=== PATIENT | male | born 1970 | race African-American/Black ===

== ENCOUNTER 2018-11-02 16:20 | Inpatient (IN) | payer BC ==
[~2018-11-02] VITALS: Ht 188 cm; Wt 118.0 kg
[~2018-11-02 16:20] MED LIST: BACTRIM DS1 TAB PO; CLINDAMYCIN HC300 MG PO; GLYBURIDE2.5 MG; LAC PO; METFORMIN ER500 M1; MOT800 PO; NOR10T PO; NORCO1 TA2 PO; ZOC10 PO
[2018-11-02 16:50] VITALS: Ht 188 cm; Wt 118.0 kg
[2018-11-02 18:20] LABS: BASOPHIL % 0.3 % (0-2); PLATELET COUNT 331 x10^3mcL (130-400)
[2018-11-02 18:21] LABS: RED CELL DISTRIBUTION WIDTH 15.4 % (11.5-14.5)
[2018-11-02 18:23] LABS: CALCIUM 8.5 mg/dL (8.5-10.1); CARBON DIOXIDE 27.7 mmol/L (21-32); CHLORIDE SERUM 100 mmol/L (98-107); CREATININE SERUM 1.2 mg/dL (0.7-1.3); GFR1 > 60 mL/min; GLUCOSE SERUM 150 mg/dL (74-106); POTASSIUM SERUM 3.8 mmol/L (3.5-5.1); SODIUM SERUM 137 mmol/L (136-145)
[2018-11-02 18:27] LABS: ALKALINE PHOSPHATASE 65 U/L (46-116); ALT/SGPT 21 U/L (16-63); AST/SGOT 22 U/L (15-37); BILIRUBIN TOTAL 0.8 mg/dL (0.20-1.00)
[2018-11-02 18:32] LABS: ALBUMIN 3.1 g/dL (3.4-5.0); TOTAL PROTEIN, SERUM 8.3 g/dL (6.4-8.2)
[2018-11-02 19:42] LABS: MAGNESIUM 1.8 mg/dL (1.8-2.4); PHOSPHOROUS 1.5 mg/dL (2.5-4.9)
[2018-11-02 19:43] LABS: CHOLESTEROL/HDL RATIO 4.9
[2018-11-02] MEDS ORDERED: BRILINTA90 M1 PO (21:12)
[2018-11-02] MEDS ORDERED: LIPITOR80 MG PO (21:13)
[2018-11-02] MEDS ORDERED: GOOD SENSE ASPI81 M3 PO (21:13)
[2018-11-02] MEDS ORDERED: METOPROLOL TART25 M1 PO (21:13)
[2018-11-02] MEDS ORDERED: FUROSEMIDE40 MG PO (21:14)
[2018-11-02] MEDS ORDERED: ZESTRIL5 MG PO (21:14)
[2018-11-02 21:24] VITALS: BP 110/58
[2018-11-03 00:16] VITALS: BP 110/58
[2018-11-03 02:02] LABS: UA SPECIFIC GRAVITY <=1.005 (1.005-1.035); microscopic required? YES; urine erythrocyte TRACE (NEGATIVE)
[2018-11-03 02:59] LABS: BASOPHIL % 0.3 % (0-2); PLATELET COUNT 299 x10^3mcL (130-400); RED CELL DISTRIBUTION WIDTH 14.5 % (11.5-14.5)
[2018-11-03 03:18] LABS: CALCIUM 8.1 mg/dL (8.5-10.1); CARBON DIOXIDE 27.4 mmol/L (21-32); CHLORIDE SERUM 101 mmol/L (98-107); CREATININE SERUM 1.3 mg/dL (0.7-1.3); GFR1 > 60 mL/min; GLUCOSE SERUM 305 mg/dL (74-106); MAGNESIUM 1.9 mg/dL (1.8-2.4); PHOSPHOROUS 2.1 mg/dL (2.5-4.9); SODIUM SERUM 135 mmol/L (136-145)
[2018-11-03 05:26] VITALS: BP 128/84
[2018-11-03 08:18] VITALS: BP 115/62
[2018-11-03 12:34] VITALS: BP 107/71
[2018-11-03 15:49] VITALS: BP 112/84
[2018-11-03 20:43] VITALS: BP 145/85
[2018-11-04 05:44] VITALS: BP 120/65
[2018-11-04 06:23] LABS: BASOPHIL % 0.4 % (0-2); PLATELET COUNT 251 x10^3mcL (130-400)
[2018-11-04 06:35] LABS: RED CELL DISTRIBUTION WIDTH 15.5 % (11.5-14.5)
[2018-11-04 06:44] LABS: CALCIUM 8.1 mg/dL (8.5-10.1); CARBON DIOXIDE 27.6 mmol/L (21-32); CHLORIDE SERUM 104 mmol/L (98-107); CREATININE SERUM 1.1 mg/dL (0.7-1.3); GFR1 > 60 mL/min; GLUCOSE SERUM 135 mg/dL (74-106); MAGNESIUM 1.8 mg/dL (1.8-2.4); PHOSPHOROUS 3.8 mg/dL (2.5-4.9); POTASSIUM SERUM 3.4 mmol/L (3.5-5.1); SODIUM SERUM 140 mmol/L (136-145)
[2018-11-04 07:37] VITALS: BP 133/75
[2018-11-04 11:33] VITALS: BP 131/80
[2018-11-04 13:35] VITALS: BP 131/80
== END 2018-11-04 15:10 | disposition home or self-care (01) | DRG 853 ==
LOC: ED 16:20 → DU 19:03
PROVIDERS: Emergency Medicine; Family Medicine
PROC: 0JBR0ZZ Excision of Left Foot Subcutaneous Tissue and Fascia, Open Approach (ICD-10-PCS; principal; 2018-11-03)
DX: A41.9 Sepsis, unspecified organism (principal); L89.623 Pressure ulcer of left heel, stage 3; I21.A1 Myocardial infarction type 2; L97.429 Non-pressure chronic ulcer of left heel and midfoot with unspecified severity; E11.65 Type 2 diabetes mellitus with hyperglycemia; E11.621 Type 2 diabetes mellitus with foot ulcer; E78.5 Hyperlipidemia, unspecified; D64.9 Anemia, unspecified; I11.0 Hypertensive heart disease with heart failure; I50.9 Heart failure, unspecified; E11.40 Type 2 diabetes mellitus with diabetic neuropathy, unspecified; E11.51 Type 2 diabetes mellitus with diabetic peripheral angiopathy without gangrene; M21.622 Bunionette of left foot; Z82.49 Family history of ischemic heart disease and other diseases of the circulatory system; Z79.899 Other long term (current) drug therapy; Z91.19 Patient's noncompliance with other medical treatment and regimen; Z98.61 Coronary angioplasty status; I25.10 Atherosclerotic heart disease of native coronary artery without angina pectoris
CPT/HCPCS: 82962; 83880; 87804; G0480; J1815; J2543; J3010; J3370; J3475; J7620; Q0092

== ENCOUNTER 2019-02-07 13:05 | Emergency (ER) | payer BC ==
[~2019-02-07] VITALS: Ht 188 cm; Wt 115.2 kg
[~2019-02-07 13:05] MED LIST changes: +BRILINTA90 M1 PO; +FUROSEMIDE40 MG PO; +GOOD SENSE ASPI81 M3 PO; +LIPITOR80 MG PO; +METOPROLOL TART25 M1 PO; +ZESTRIL5 MG PO
[2019-02-07 13:33] VITALS: Ht 188 cm; Wt 115.2 kg
[2019-02-07 15:02] VITALS: BP 115/62
== END 2019-02-07 15:02 | disposition home or self-care (01) ==
LOC: ED 13:05
DX: T82.594A Other mechanical complication of infusion catheter, initial encounter (principal); I10 Essential (primary) hypertension; E11.9 Type 2 diabetes mellitus without complications; Z98.890 Other specified postprocedural states; Y92.89 Other specified places as the place of occurrence of the external cause